=== PATIENT | female | born 1985 | race Caucasian/White ===

== ENCOUNTER → 2024-07-13 | Outpatient (CLI) | payer MEDICAID, SELFPAY ==
--- NOTE | 2024-07-13 16:15 | XR_ITS ---
Examination: OB Transvaginal ultrasound of the pelvis, complete Technique: Transvaginal sonographic images pelvis performed using ridley scale imaging Exam date and time: July 13, 2024 1626 hrs. Indications: Pelvic cramping and vaginal bleeding beginning 5 days ago Findings: Uterus 8.8 cm pole 0.4 cm corresponds to 6 weeks 0 day gestational age Cardiac motion 121 BPM Right ovary 4.0 cm arterial flow 19 mm corpus luteum cyst Left ovary 2.8 cm arterial flow small follicles Impression: Viable intrauterine gestation 6 weeks 0 days.
== END | disposition home or self-care (01) ==
LOC: CDIM 16:10
PROVIDERS: PCP Nurse Practitioner Family; Referring Provider Obstetrics & Gynecology; Visit Provider Obstetrics & Gynecology
DX: O20.0 Threatened abortion (principal); Z3A.01 Less than 8 weeks gestation of pregnancy
CPT/HCPCS: 76817